=== PATIENT | female | born 1980 | race Caucasian/White ===

== ENCOUNTER 2018-01-14 13:11 | Emergency (ER) | payer OTHER ==
[~2018-01-14] VITALS: Ht 165.1 cm; Wt 113.4 kg
[~2018-01-14 13:11] MED LIST: ALBU90OI6 INH; AMOX500 PO; AZIT250 PO; Alprazolam0.5 MG PO; BENZ100A PO; CEFP200 PO; CEPH500 PO; CIPR250 PO; CIPR500 PO; CLIN150 PO; CLIN300 PO; Cipro250 MG PO; Cleocin HCl300 MG PO; DOXY100 PO; ERYT.5TO OS; FLUO10 PO; GUAI600ER PO; GUAI600T33 PO; GUAPSEER PO; HYDACE5 PO; HYDGUAL120 PO; IBUP800; IBUP800 PO; METR250 PO; MULVITMINE; MULVITMINF; Macrobid 100 M100 MG PO; NAPR500 PO; NAPR550 PO; NEOPOLHCSU OT; NEOPOLHYDS OT; OMEP40CA12 PO; ONDA4 PO; ONDA4ODT MM; OTC COUGH MEDS; OXYACE5T PO; PHENA100 PO; PHENA200 PO; Prilosec10 M1 PO; Pyridium100 MG PO; RXCEPH500 PO; RXCLIN PO; RXHYDACE PO; RXPHEN200 PO; SULTRIDS PO; TRAM50 PO; TRIA80TC TOP; Ultram50 MG PO; Xanax0.5 MG PO
[2018-01-14] MEDS ORDERED: BENZ100A PO (14:02)
[2018-01-14] MEDS ORDERED: Sudogest60 MG PO (14:02)
== END 2018-01-14 14:20 | disposition home or self-care (01) ==
LOC: ER 13:11
DX: J40 Bronchitis, not specified as acute or chronic (principal); Z88.2 Allergy status to sulfonamides; Z88.1 Allergy status to other antibiotic agents; Z88.8 Allergy status to other drugs, medicaments and biological substances; Z88.0 Allergy status to penicillin; F43.10 Post-traumatic stress disorder, unspecified; Z87.891 Personal history of nicotine dependence
CPT/HCPCS: 71046; 99283

== ENCOUNTER 2018-04-02 20:59 | Emergency (ER) | payer OTHER ==
[~2018-04-02] VITALS: Ht 165.1 cm; Wt 90.7 kg
[~2018-04-02 20:59] MED LIST changes: +Sudogest60 MG PO
[2018-04-02] MEDS ORDERED: LEVSOD50 PO (21:05)
[2018-04-02 21:33] LABS: Source, Urine Clean Catch
[2018-04-02 21:36] LABS: Appearance, Urine Hazy (Clear); Bilirubin, Urine Neg (Neg); Blood, Urine Neg (Neg); Color, Urine Yellow (P-Yellow); Glucose Qualitative, Urine Neg (Neg); Ketones, Urine Neg (Neg); Leukocyte Esterase, Urine 1+ (Neg); Nitrite, Urine Neg (Neg); Protein, Urine 1+ (Neg); Specific Gravity, Urine 1.015 (1.003-1.022); Urobilinogen, Urine 1+ (Normal); pH, Urine 6.5 (5.0-8.0)
[2018-04-02 21:49] LABS: Red Blood Cells, Urine 0-2 /hpf (0-2)
[2018-04-02 21:50] LABS: Bacteria Mod /hpf; Squamous Epithelial Cells Mod /hpf (Few)
[2018-04-02] MEDS ORDERED: Macrobid 100 M100 MG PO (21:53)
== END 2018-04-02 22:25 | disposition home or self-care (01) ==
LOC: ER 20:59
PROVIDERS: Emergency Medicine
DX: N39.0 Urinary tract infection, site not specified (principal); R09.81 Nasal congestion; J34.89 Other specified disorders of nose and nasal sinuses; Z88.2 Allergy status to sulfonamides; Z88.1 Allergy status to other antibiotic agents; Z88.0 Allergy status to penicillin; Z79.899 Other long term (current) drug therapy
CPT/HCPCS: 81001; 81025; 87086; 99283

== ENCOUNTER 2019-03-04 19:15 | Emergency (ER) | payer OTHER ==
[~2019-03-04] VITALS: Ht 165.1 cm; Wt 113.4 kg
[~2019-03-04 19:15] MED LIST changes: +LEVSOD50 PO
== END 2019-03-04 21:20 | disposition home or self-care (01) ==
LOC: ER 19:15
DX: M79.662 Pain in left lower leg (principal); Z88.2 Allergy status to sulfonamides; Z88.1 Allergy status to other antibiotic agents; Z88.8 Allergy status to other drugs, medicaments and biological substances; Z88.0 Allergy status to penicillin; Z87.891 Personal history of nicotine dependence
CPT/HCPCS: 93971; 99283-25

== ENCOUNTER 2021-02-28 21:19 | Emergency (ER) | payer OTHER ==
[~2021-02-28] VITALS: Ht 165.1 cm; Wt 104.3 kg
[2021-02-28 21:40] LABS: Source, Urine Clean Catch
[2021-02-28 21:59] LABS: Bilirubin, Urine Neg (Neg); Blood, Urine 1+ (Neg); Glucose Qualitative, Urine Neg (Neg); Ketones, Urine Neg (Neg); Leukocyte Esterase, Urine 3+ (Neg); Nitrite, Urine Neg (Neg); Protein, Urine Neg (Neg); Specific Gravity, Urine 1.025 (1.003-1.022); Urobilinogen, Urine NORM (Normal)
[2021-02-28 22:05] LABS: Appearance, Urine Hazy (Clear); Color, Urine Yellow (P-Yellow)
[2021-02-28 22:06] LABS: Bacteria Many /hpf; Red Blood Cells, Urine 0-2 /hpf (0-2); Squamous Epithelial Cells Many /hpf (Few); White Blood Cells, Urine 50-100 /hpf (0-5)
[2021-03-01 00:16] LABS: Source, Urine Clean Catch
[2021-03-01 00:19] LABS: Bilirubin, Urine Neg (Neg); Blood, Urine 1+ (Neg); Glucose Qualitative, Urine Neg (Neg); Ketones, Urine Neg (Neg); Leukocyte Esterase, Urine 2+ (Neg); Nitrite, Urine Neg (Neg); Protein, Urine Neg (Neg); Specific Gravity, Urine 1.025 (1.003-1.022); Urobilinogen, Urine NORM (Normal)
[2021-03-01 00:23] LABS: Appearance, Urine Hazy (Clear); Color, Urine Yellow (P-Yellow)
[2021-03-01 00:28] LABS: Bacteria Mod /hpf; Red Blood Cells, Urine 0-2 /hpf (0-2); Squamous Epithelial Cells Mod /hpf (Few); White Blood Cells, Urine 25-50 /hpf (0-5)
[2021-03-01 00:29] LABS: Amorphous Heavy (0-Heavy)
== END 2021-03-01 00:19 | disposition home or self-care (01) ==
LOC: ER 21:19
PROVIDERS: Physician Assistant
DX: R30.0 Dysuria (principal); F41.9 Anxiety disorder, unspecified; Z88.2 Allergy status to sulfonamides; Z88.1 Allergy status to other antibiotic agents; Z88.0 Allergy status to penicillin; Z88.8 Allergy status to other drugs, medicaments and biological substances; Z87.891 Personal history of nicotine dependence
CPT/HCPCS: 81001; 87077; 87086; 87186; 99283

== ENCOUNTER 2022-05-03 21:46 | Emergency (ER) | payer OTHER ==
[~2022-05-03] VITALS: Ht 165.1 cm; Wt 90.7 kg
== END 2022-05-04 00:09 | disposition home or self-care (01) ==
LOC: ER 21:46
DX: T24.232A Burn of second degree of left lower leg, initial encounter (principal); T31.0 Burns involving less than 10% of body surface; X11.8XXA Contact with other hot tap-water, initial encounter; Y92.9 Unspecified place or not applicable; Y99.0 Civilian activity done for income or pay; Z88.1 Allergy status to other antibiotic agents; Z88.0 Allergy status to penicillin; Z88.2 Allergy status to sulfonamides; Z87.891 Personal history of nicotine dependence
CPT/HCPCS: 16000; 90714; 99283-25

== ENCOUNTER 2024-11-27 18:35 | Emergency (ER) | payer OTHER ==
[~2024-11-27] VITALS: Ht 165.1 cm; Wt 68.0 kg
[2024-11-27 18:38] VITALS: BP 176/110
== END 2024-11-27 20:27 | disposition home or self-care (01) ==
LOC: ER 18:35
DX: S09.90XA Unspecified injury of head, initial encounter (principal); Z88.2 Allergy status to sulfonamides; Z88.1 Allergy status to other antibiotic agents; Z88.0 Allergy status to penicillin; Z87.891 Personal history of nicotine dependence; Y04.2XXA Assault by strike against or bumped into by another person, initial encounter
CPT/HCPCS: 81025; 99283